=== PATIENT | female | born 1970 | race Two or more races ===

== ENCOUNTER 2018-01-12 17:14 | Emergency (ER) | payer MEDICAID ==
[~2018-01-12] VITALS: Ht 162.6 cm; Wt 90.7 kg
[2018-01-12 17:25] VITALS: BP 140/68
== END 2018-01-12 22:30 | disposition left against medical advice (07) ==
LOC: ER 17:14
DX: M79.602 Pain in left arm (principal); Z53.21 Procedure and treatment not carried out due to patient leaving prior to being seen by health care provider
CPT/HCPCS: 72100; 73560